=== PATIENT | female | born 1955 | race Caucasian/White ===

== ENCOUNTER 2019-10-18 10:55 | Emergency (ER) | payer MEDICARE, OTHER, SELFPAY ==
[2019-10-18 10:58] VITALS: BP 129/81; PULSE 71; RESP 17; O2SAT 98; BMI 32.1
--- NOTE | 2019-10-18 11:05 | ECG_ITS ---
Measurements Intervals [place] Rate: 73 P: 56 WA: 150 QRS: -14 QRSD: 125 T: 42 QT: 432 QTc: 479 SINUS RHYTHM LEFT BUNDLE BRANCH BLOCK [120+ ms QRS DURATION, 80+ ms Q/S IN V1/V2, 85+ ms R IN I/aVL/V5/V6] No previous ECG available for comparison Electronically Signed On 10-19-2019 11:15:19 ARTILLERY SPECIALIST by Sagar Daugherty M.D. [id number]
--- NOTE | 2019-10-18 11:05 | XR_ITS ---
WS: [id number] XR chest 1V portable [id number] REASON FOR EXAM: cp FINDINGS: The cardiac silhouette was not enlarged. The lung pendleton are well aerated there was no pneumonia, pleural effusion, pulmonary edema, or pneumo thorax. The thoracic spine was normal. No osseous abnormalities The hilum and apices are normal. XR/XR chest 1V portable [id number] IMPRESSION: No acute cardiopulmonary changes.
--- NOTE | 2019-10-18 11:10 | ED_ITS ---
Entered by Leana Edwards, acting as scribe for HPI - Chest Pain General: Chief Complaint: Chest Pain Stated Complaint: Chest pains Time Seen by Provider: 10/18/19 10:59 Source: patient and family Mode of arrival: ambulatory Limitations: no limitations History of Present Illness: HPI narrative: 64 yo female presents with neck and L arm pain. pt states this started today. pt states the pain is a pressure type pain is been going on for roughly 3 to 4 hours. She denies any worsening improving factors. She denies any sweating spells or nausea. She has no history of coronary artery disease that she knows of. She does have hypertension and hyperlipidemia. She is non-smoker. She she states she still has a pressure type pain in her chest but is very mild in nature. MD complaint: other (neck and left arm pain) Onset (ago): day(s) Timing of current episode: still present Associated symptoms: Reports no associated symptoms; Deny abdominal pain, dyspnea, fever(s), nausea or vomiting Treatment prior to arrival: none Review of Systems Const: Denies: fever, chills, body aches or change in appetite Eyes: Denies: photophobia ENMT: Denies: throat pain or dental pain Card: Reports: chest pain Resp: Denies: shortness of breath GI: Denies: abdominal pain, nausea, vomiting or diarrhea : Denies: painful urination Musc: Denies: back pain Skin/Breast: Denies: rash Neuro: Denies: headache Psych: Denies: depression Charles/Lymph: Denies: easy bruising All/Imm: Denies: acute wheezing PFS ED PFSH: Social History Smoking and tobacco status: never smoked Alcohol intake: never Marital status: Physical Exam Const: COMMON NORMALS: no apparent distress, oriented x3 and healthy appearing HENMT: COMMON NORMALS: normocephalic and head/scalp atraumatic HEAD & S CALP: normocephalic and atraumatic Eye: COMMON NORMALS: PERRL and EOMs intact bilaterally PUPIL: Yes PERRL Chest: COMMONS NORMALS: inspection of chest normal and palpation of chest normal Resp: COMMON NORMALS: normal respiratory effort, no retractions, no use of accessory muscles and clear to auscultation bilaterally AUSCULTATION: clear to auscultation bilaterally Cardio: COMMON NORMALS: regular rate, regular rhythm and no murmurs RATE: regular rate RHYTHM: regular rhythm GI: COMMON NORMALS: normal to inspection, nondistended, normoactive bowel sounds, soft to palpation, non-tender and no masses PALPATION: Yes soft Neuro: COMMON NORMALS: oriented x3, moves all extremities and no focal motor deficits Psych: COMMON NORMALS: mental status grossly normal, thought process normal and cooperative THOUGHT PROCESS: normal thought process Skin: COMMON NORMALS: no rashes or lesions noted and no wounds GENERAL SKIN EXAM: no rashes or lesions noted Course Vital Signs: Vital signs: Vital Signs Pulse Rate 87 10/18/19 14:50 Respiratory Rate 22 H 10/18/19 14:50 Blood Pressure 101/62 10/18/19 14:50 Pulse Oximetry 94 10/18/19 14:50 MDM - Chest Pain MDM Narrative: Medical decision making narrative: Patient presents with atypical chest pain with no signs of coronary artery disease or pulmonary bruising. Patient is stable for discharge and is to follow-up primary care doctor in 3 to 5 days return if worsening. Lab Data: Labs: Lab Results 10/18/19 10/18/19 10/18/19 Range/Units 11:10 11:10 11:10 WBC 6.6 (4.0-10.0) 10^3/ uL RBC 4.24 (4.1-5.3) 10^6/u L Hgb 12.9 (11.5-15.3) g/dL Hct 39.1 (37.0-47.0) % MCV 92.2 (81-99) fL MCH 30.4 (28.0-34.0) pg MCHC 33.0 (30.0-36.0) g/dL RDW 12.9 (12.1-15.1) % Plt Count 247 (130-400) 10^3/c mm MPV 10.3 (7.4-10.4) fL Neut % (Auto) 57.0 % Lymph % (Auto) 33.4 % Butts % (Auto) 7.3 % Eos % (Auto) 1.5 % Baso % (Auto) 0.5 % Neut # (Auto) 3.7 (1.8-7.7) 10^3/u L Lymph # (Auto) 2.2 (0.8-4.8) 10^3/u L Butts # (Auto) 0.5 (0.2-0.9) 10^3/u L Eos # (Auto) 0.1 (0.0-0.8) 10^3/u L Baso # (Auto) 0.0 (0.0-0.1) 10^3/u L Nucleated RBC % (a uto) 0 % Nucleated RBCs # 0.0 /100WBC Sodium 140 (136-145) mmol/L Potassium 3.7 (3.5-5.1) mmol/L Chloride 102 (98-107) mmol/L Carbon Dioxide 25 (22-29) mmol/L Anion Gap 16.7 (5-19) BUN 12 (8-23) mg/dL Creatinine 0.8 (0.5-0.9) mg/dL GFR Calculation 71.8 L (90-130) mL/min Glucose 108 (65-115) mg/dL Calcium 9.9 (8.5-10.5) mg/dL Total Bilirubin 0.4 (0.15-1.2) mg/dL AST 21 (0-32) U/L ALT 17 (0-33) U/L Alkaline Phosphata se 81 (35-105) IU/L Troponin T Baselin e 7 (0-10) ng/mL Troponin T 120 Min tommy (0-10) ng/mL Delta Troponin T (0-10) ABS# Total Protein 7.7 (6.6-8.7) g/dL Albumin 4.4 (3.5-5.2) g/dL Globulin 3.3 (1.3-4.6) g/dL Lipase 26 (13-60) U/L 02/16/20 Range/Units 13:02 WBC (4.0-10.0) 10^3/ uL RBC (4.1-5.3) 10^6/u L Hgb (11.5-15.3) g/dL Hct (37.0-47.0) % MCV (81-99) fL MCH (28.0-34.0) pg MCHC (30.0-36.0) g/dL RDW (12.1-15.1) % Plt Count (130-400) 10^3/c mm MPV (7.4-10.4) fL Neut % (Auto) % Lymph % (Auto) % Butts % (Auto) % Eos % (Auto) % Baso % (Auto) % Neut # (Auto) (1.8-7.7) 10^3/u L Lymph # (Auto) (0.8-4.8) 10^3/u L Butts # (Auto) (0.2-0.9) 10^3/u L Eos # (Auto) (0.0-0.8) 10^3/u L Baso # (Auto) (0.0-0.1) 10^3/u L Nucleated RBC % (a uto) % Nucleated RBCs # /100WBC Sodium (136-145) mmol/L Potassium (3.5-5.1) mmol/L Chloride (98-107) mmol/L Carbon Dioxide (22-29) mmol/L Anion Gap (5-19) BUN (8-23) mg/dL Creatinine (0.5-0.9) mg/dL GFR Calculation (90-130) mL/min Glucose (65-115) mg/dL Calcium (8.5-10.5) mg/dL Total Bilirubin (0.15-1.2) mg/dL AST (0-32) U/L ALT (0-33) U/L Alkaline Phosphata se (35-105) IU/L Troponin T Baselin e (0-10) ng/mL Troponin T 120 Min tommy 6.00 (0-10) ng/mL Delta Troponin T -1.00 L (0-10) ABS# Total Protein (6.6-8.7) g/dL Albumin (3.5-5.2) g/dL Globulin (1.3-4.6) g/dL Lipase (13-60) U/L Imaging Data^: CXR: My impression: no acute abnormality EKG Data^: EKG 1: Attestation: I personally reviewed and interpreted this EKG as follows: EKG interpretation date: 10/18/19 EKG interpretation time: 11:45 Interpretation: nsr hr [address] or t wave abnormalties qrs 125 qtc 459 Discharge Plan Discharge Patient Disposition: Home, Self-Care Clinical Impression: Atypical chest pain Condition: Stable Prescriptions: New Adult Low Dose Aspirin 81 mg tablet,delayed release (DR/EC) 81 mg PO DAILY Qty: 30 RF: 0 omeprazole 20 mg capsule,delayed release(DR/EC) 20 mg PO DAILY 90 Days Qty: 90 RF: 0 No Action metoprolol tartrate 25 mg tablet 25 mg PO BID RF: 0 levothyroxine 50 mcg capsule 50 mcg PO DAILY RF: 0 omega-3 fatty acids Capsule 1,250 mg PO BID RF: 0 [id number] Tablet 2 tab PO DAILY RF: 0 cholecalciferol (vitamin D3) 5,000 unit capsule 5,000 unit PO DAILY RF: 0 Probiotic Acidophilus 1.5 mg (250 million cell) capsule 100 mmu cells PO DAILY RF: 0 spironolactone 25 mg tablet 25 mg PO DAILY RF: 0 vitamin B complex Tablet 1 tab PO DAILY RF: 0 Discharge Orders: Discharge Order (Routine); Ordered 10/18/19 Ordered By: Joseluis Quintana Referrals: Dayne Ham DO [Primary Care Provider] - Discharge Diet: Usual diet Discharge Activity: Limit activity as instructed Patient Instructions: Aspirin (By mouth), Omeprazole (By mouth), Chest Pain (ED) Activity Restrictions/Additional Instructions: Follow-up with your beater machine operator within the week. Discharge Date/Time: 10/18/19 14:52 Coding Level of Care Code ED [place] for Chg Fwd Exam Detailed The documentation recorded by the Jerry de luna Bridget Annette, accurately reflects the service I personally performed and the decisions made by Charlene cruz Korby, MD Oct 18, 2019 10:55
[2019-10-18 11:16] LABS: Basophils % 0.5 %; Eosinophils # 0.1 10^3/uL (0.0-0.8); Eosinophils % 1.5 %; Hematocrit 39.1 % (37.0-47.0); Hemoglobin 12.9 g/dL (11.5-15.3); Lymphocytes # 2.2 10^3/uL (0.8-4.8); Lymphocytes % 33.4 %; Mean Corpuscular Hemoglobin 30.4 pg (28.0-34.0); Mean Corpuscular Volume 92.2 fL (81-99); Mean Platelet Volume 10.3 fL (7.4-10.4); Monocytes # 0.5 10^3/uL (0.2-0.9); Monocytes % 7.3 %; Neutrophils # 3.7 10^3/uL (1.8-7.7); Nucleated Red Blood Cells % 0 %; Platelet Count 247 10^3/cmm (130-400); Red Blood Count 4.24 10^6/uL (4.1-5.3); Red Cell Distribution Width 12.9 % (12.1-15.1); White Blood Count 6.6 10^3/uL (4.0-10.0)
[2019-10-18] MEDS: aspirin 81 mg Chew Tablet 324 MG PO (11:50)
[2019-10-18] MEDS: nitroglycerin 0.4 mg sublingual Tablet SUBLINGUAL ×2 (11:52→12:12)
[2019-10-18 11:58] LABS: Alanine Aminotransferase 17 U/L (0-33); Albumin Level 4.4 g/dL (3.5-5.2); Alkaline Phosphatase 81 IU/L (35-105); Anion Gap 16.7 (5-19); Aspartate Amino Transferase 21 U/L (0-32); Blood Urea Nitrogen 12 mg/dL (8-23); Calcium 9.9 mg/dL (8.5-10.5); Carbon Dioxide 25 mmol/L (22-29); Chloride 102 mmol/L (98-107); Creatinine Clr Calc Pharmacy 65.0015; Globulin 3.3 g/dL (1.3-4.6); Glomerular Filtration Rate 71.8 mL/min (90-130); Glucose 108 mg/dL (65-115); Lipase 26 U/L (13-60); Potassium 3.7 mmol/L (3.5-5.1); Sodium 140 mmol/L (136-145); Total Bilirubin 0.4 mg/dL (0.15-1.2); Total Protein 7.7 g/dL (6.6-8.7)
[2019-10-18 11:59] LABS: Troponin(5th) Baseline 7 ng/mL (0-10)
--- NOTE | 2019-10-18 13:05 | ECG_ITS ---
Measurements Intervals [place] Rate: 54 P: 39 WI: 149 QRS: -11 QRSD: 128 T: 29 QT: 466 QTc: 445 SINUS BRADYCARDIA LEFT BUNDLE BRANCH BLOCK [120+ ms QRS DURATION, 80+ ms Q/S IN V1/V2, 85+ ms R IN I/aVL/V5/V6] No previous ECG available for comparison Electronically Signed On 10-19-2019 11:21:56 PATHOLOGY LABORATORY AIDES TEACHER by Sagar Daugherty M.D. [id number] f
[2019-10-18 13:12] VITALS: BP 93/74; PULSE 60; RESP 17; O2SAT 98
[2019-10-18 14:50] VITALS: BP 101/62; PULSE 87; RESP 22; O2SAT 94
== END 2019-10-18 14:52 | disposition home or self-care (01) ==
PROVIDERS: Emergency Provider Emergency Medicine; Family Provider Electrodiagnostic Medicine; PCP Electrodiagnostic Medicine
DX: R07.89 Other chest pain (principal); I10 Essential (primary) hypertension; E78.5 Hyperlipidemia, unspecified
CPT/HCPCS: 36415; 71045; 80053; 83690; 84484; 85025; 93005; 99282; 99284

== ENCOUNTER → 2020-05-24 10:29 | Outpatient (BNVA) | payer MEDICARE, OTHER, SELFPAY | PROVIDERS: Family Provider Electrodiagnostic Medicine; PCP Electrodiagnostic Medicine; Visit Provider Internal Medicine Cardiovascular Disease | DX: R06.02 Shortness of breath (principal) | CPT/HCPCS: 80048 ==

== ENCOUNTER 2021-01-05 11:19 | Outpatient (CLI) | payer MEDICARE, OTHER, SELFPAY ==
--- NOTE | 2021-01-05 11:27 | MM_ITS ---
WS: [id number] BILATERAL SCREENING DIGITAL MAMMOGRAM WITH CAD HISTORY: SCREENING COMPARISON: 06/13/2017 and 10/06/2015 Bilateral CC and MLO views submitted. Computer aided detection analyzed. Breast composition: The breasts are heterogeneously dense, which may obscure small masses. No suspici ous masses, microcalcifications or architectural distortion. Benign calcification LEFT breast. MM/[place] [id number] IMPRESSION: BI-RADS: 2-Benign FOLLOW UP: 1 Year Follow-up
== END 2021-01-05 11:20 | disposition home or self-care (01) ==
LOC: RADSHAW 11:24
PROVIDERS: Family Provider Electrodiagnostic Medicine; PCP Electrodiagnostic Medicine; Visit Provider Electrodiagnostic Medicine
DX: Z12.31 Encounter for screening mammogram for malignant neoplasm of breast (principal)
CPT/HCPCS: 77067

== ENCOUNTER 2021-02-21 14:34 | Outpatient (CLI) | payer MEDICARE, OTHER, SELFPAY ==
--- NOTE | 2021-02-21 14:46 | US_ITS ---
WS: [id number] THYROID ULTRASOUND HISTORY: GOITER COMPARISON: 10/10/2018 Right lobe: 1.4 cm x 1.6 cm x 4.7 cm (w x ap x l). Volume: 5.7 cm3. Normal size thyroid. Mild heterogeneity. No suspicious nodules are identified. Small stable hypoechoi c nodule in the RIGHT isthmus measuring 1.8 cm. Left lobe: 1.9 cm x 1.9 cm x 4.7 cm (w x ap x l). Volume: 9.2 cm3. Mildly enlarged thyroid. Heterogeneous gland with a dominant solid nodule in the lower pole measuring 1.4 x 1.0 x 1.9 cm. Not significantly changed since the prior study. No increased vascularity. There are additional nodules which are also stable. Isthmus: 0.6 cm. US/US thyroid [id number] IMPRESSION: Stable bilateral thyroid nodules. No change since 10/10/2018. Consider yearly ult rasound evaluation to document continued stability.
--- NOTE | 2021-02-21 15:34 | XR_ITS ---
WS: [id number] SCREENING DEXA SCAN [employer] CLINICAL INFORMATION: VITAMIN D DEFICIENCY, OSTEOPOROSIS COMPARISON: 015 FINDINGS: The L1-L4 bone mineral density measures 1.134 g/cm2. This corresponds to a T score score of -0.4 and Z score of 0.9. Left femoral neck bone mineral density measures 0.780 g/cm2. This corresponds to a T score of -1.8 an d Z score of -0.7. Right femoral neck bone mineral density measures 0.806 g/cm2. This corresponds to a T score -1.6of an d Z score of -0.5. Mean femoral neck bone mineral density measures 0.793 g/cm2. This corresponds to a T score of -1.7 an d Z score of -0.6. XR/XR DEXA axial skeleton* [id number] IMPRESSION: Osteopenia in the femoral necks. Normal bone mineralization lumbar spine. Patient's FRAX calculated 10 year probability for major osteoporotic fracture i s 19.8 % and osteoporotic hip fracture is 3.9%.
== END 2021-02-21 14:35 | disposition home or self-care (01) ==
LOC: RAD 14:39
PROVIDERS: PCP Electrodiagnostic Medicine; Visit Provider Electrodiagnostic Medicine
DX: M81.0 Age-related osteoporosis without current pathological fracture (principal); E55.9 Vitamin D deficiency, unspecified; M85.88 Other specified disorders of bone density and structure, other site; E04.9 Nontoxic goiter, unspecified; E04.1 Nontoxic single thyroid nodule
CPT/HCPCS: 76536; 77080

== ENCOUNTER → 2021-09-27 10:45 | Outpatient (BNVA) | payer MEDICARE, OTHER, SELFPAY | PROVIDERS: PCP Electrodiagnostic Medicine; Visit Provider Internal Medicine Cardiovascular Disease | DX: R06.02 Shortness of breath (principal); I10 Essential (primary) hypertension | CPT/HCPCS: 80048 ==

== ENCOUNTER → 2022-03-23 07:11 | Outpatient (BNVA) | payer MEDICARE, OTHER, SELFPAY | PROVIDERS: Visit Provider Family Medicine | DX: E03.9 Hypothyroidism, unspecified (principal); E78.2 Mixed hyperlipidemia; I10 Essential (primary) hypertension; Z76.89 Persons encountering health services in other specified circumstances | CPT/HCPCS: 80053; 80061; 84439; 84443; 85025 ==

== ENCOUNTER → 2022-03-29 09:40 | Outpatient (BNVA) | payer MEDICARE, OTHER, SELFPAY | PROVIDERS: PCP Family Medicine; Visit Provider Internal Medicine Cardiovascular Disease | DX: R06.02 Shortness of breath (principal); I47.1 Supraventricular tachycardia; I25.10 Atherosclerotic heart disease of native coronary artery without angina pectoris; I10 Essential (primary) hypertension; E78.2 Mixed hyperlipidemia; R07.89 Other chest pain; E03.9 Hypothyroidism, unspecified; R00.1 Bradycardia, unspecified | CPT/HCPCS: 93005; 99214 ==

== ENCOUNTER 2022-06-15 12:01 | Outpatient (CLI) | payer MEDICARE, OTHER, SELFPAY ==
--- NOTE | 2022-06-15 13:30 | USCV_ITS ---
Alie Ledesma Age: 67 Gender: F : 1955 Exam Date: 06/15/2022 13:14 Ordering Phys: Mary Leon MD ([email or web address]) Technologist: Keith Bee [place] [facility] [place]: coranary heart disease BP: 120 / 70 HR: 57 Rhythm: Sinus Technical Quality: Adequate MEASUREMENTS (Male / Female) Normal Values 2D ECHO LV Diastolic Diameter PLAX 4.6 cm 4.2 - 5.9 / 3.9 - 5.3 cm LV Systolic Diameter PLAX 2.8 cm IVS Diastolic Thickness 1.0 cm 0.6 - 1.0 / 0.6 - 0.9 cm IVS Systolic Thickness 1.3 cm LVPW Diastolic Thickness 0.8 cm 0.6 - 1.0 / 0.6 - 0.9 cm LVPW Systolic Thickness 1.4 cm LVOT Diameter 1.9 cm LV Ejection Fraction 2D Teich 69.8 % LV Ejection Fraction MOD 2C 80.7 % LV Ejection Fraction 2C AL 80.9 % LA Diameter 3.6 cm Aorta at Sinotubular Diameter 2.5 cm IVC Diameter 1.2 cm M-MODE LV Diastolic Diameter MM 4.5 cm 4.2 - 5.9 / 3.9 - 5.3 cm LV Systolic Diameter MM 2.9 cm LV Ejection Fraction MM Teich 64.7 % IVS Diastolic Thickness MM 0.9 cm 0.6 - 1.0 / 0.6 - 0.9 cm IVS Systolic Thickness MM 1.9 cm LVPW Diastolic Thickness MM 1.1 cm 0.6 - 1.0 / 0.6 - 0.9 cm LVPW Systolic Thickness MM 1.6 cm RV Diastolic Diameter MM 1.3 cm Aortic Annulus Diameter 3.0 cm LA Ao Ratio MM 1.3 MV E Point Septal Separation 0.9 cm DOPPLER AV Peak Velocity 120.0 cm/s LVOT Peak Velocity 87.0 cm/s AV Area Cont Eq vti 2.0 cm squared AV Area Cont Eq pk 2.1 cm squared MV Area PHT 5.0 cm squared Mitral E to A Ratio 1.3 MV E' Velocity 44.5 cm/s Mitral E to MV E' Ratio 7.0 Mitral E to LV E' Lateral Ratio 9.0 Mitral E to LV E' Septal Ratio 5.7 TR Peak Velocity 112.0 cm/s TR Peak Gradient 5.0 mmHg TV Peak E Velocity 82.0 cm/s Right Atrial Pressure 3.0 mmHg Pulmonary Artery Systolic Pressu 8.0 mmHg RV Acceleration Time 0.2 s FINDINGS Left Ventricle Normal left ventricular size and systolic function, EF 72 %. No regional wall motion abnormalities. Right Ventricle The right ventricle is normal in size and function. Right Atrium The right atrium is normal in size. Left Atrium The left atrium is normal in size. Mitral Valve Mild mitral valve regurgitation. Aortic Valve No gross abnormalities noted Tricuspid Valve No gross abnormalities noted Pulmonic Valve Trace pulmonary valve regurgitation. Estimated pulmonary artery peak systolic pressure within normal limits Pericardium Normal pericardium without effusion. Aorta Normal ascending aorta dimension. IVC Normal inferior vena cava. CONCLUSIONS Normal left ventricular size and systolic function, EF 72 %. No regional wall motion abnormalities. Trace pulmonary valve regurgitation. Estimated pulmonary artery peak systolic pressure within normal limits. Normal cardiac chamber sizes. There is no pericardial effusion. There are no intracardiac masses. Compared to the study from 09/15/2018, the LV diastolic function appears to be in the normal range Dr Mary Leon MD FACC (Electronically Signed) Final Date: 15 June 2022 15:41 S
== END 2022-06-15 12:02 | disposition home or self-care (01) ==
LOC: RAD 12:05
PROVIDERS: PCP Family Medicine; Visit Provider Internal Medicine Cardiovascular Disease
DX: R06.02 Shortness of breath (principal); R06.00 Dyspnea, unspecified; I25.10 Atherosclerotic heart disease of native coronary artery without angina pectoris
CPT/HCPCS: 93306

== ENCOUNTER → 2022-09-04 08:39 | Outpatient (BNVA) | payer MEDICARE, OTHER, SELFPAY | PROVIDERS: PCP Family Medicine; Visit Provider Family Medicine | DX: E03.9 Hypothyroidism, unspecified (principal); I10 Essential (primary) hypertension; E78.2 Mixed hyperlipidemia; R30.0 Dysuria | CPT/HCPCS: 80053; 81000; 84443; 87086 ==

== ENCOUNTER → 2023-03-04 10:25 | Outpatient (BNVA) | payer MEDICARE, OTHER, SELFPAY | PROVIDERS: PCP Family Medicine; Visit Provider Internal Medicine Cardiovascular Disease | DX: I25.10 Atherosclerotic heart disease of native coronary artery without angina pectoris (principal); I47.1 Supraventricular tachycardia; R06.02 Shortness of breath; E78.2 Mixed hyperlipidemia; I11.9 Hypertensive heart disease without heart failure; Z79.82 Long term (current) use of aspirin | CPT/HCPCS: 99214 ==

== ENCOUNTER → 2023-03-13 08:13 | Outpatient (BNVA) | payer MEDICARE, OTHER, SELFPAY | PROVIDERS: PCP Family Medicine; Visit Provider Podiatrist Foot & Ankle Surgery | DX: L60.3 Nail dystrophy (principal) | CPT/HCPCS: 99203 ==

== ENCOUNTER → 2023-08-19 08:46 | Outpatient (BNVA) | payer MEDICARE, OTHER, SELFPAY | PROVIDERS: PCP Family Medicine; Visit Provider Nurse Practitioner Family | DX: R09.81 Nasal congestion (principal); U07.1 COVID-19 | CPT/HCPCS: 87400; 87426 ==

== ENCOUNTER → 2023-08-28 06:51 | Outpatient (BNVA) | payer MEDICARE, OTHER, SELFPAY | PROVIDERS: PCP Family Medicine; Visit Provider Podiatrist Foot & Ankle Surgery | DX: M72.2 Plantar fascial fibromatosis; L60.3 Nail dystrophy | CPT/HCPCS: 73630; 99213 ==

== ENCOUNTER → 2023-10-09 06:49 | Outpatient (BNVA) | payer MEDICARE, OTHER, SELFPAY | PROVIDERS: PCP Family Medicine; Visit Provider Podiatrist Foot & Ankle Surgery | DX: L60.3 Nail dystrophy; M72.2 Plantar fascial fibromatosis | CPT/HCPCS: 99213 ==

== ENCOUNTER → 2023-10-30 11:45 | Outpatient (BNVA) | payer MEDICARE, OTHER, SELFPAY | PROVIDERS: PCP Family Medicine; Visit Provider Family Medicine | DX: E78.2 Mixed hyperlipidemia (principal); E03.9 Hypothyroidism, unspecified; I25.10 Atherosclerotic heart disease of native coronary artery without angina pectoris; I10 Essential (primary) hypertension; R30.0 Dysuria | CPT/HCPCS: 80053; 80061; 81000; 84439; 84443; 85025 ==

== ENCOUNTER 2023-11-13 10:17 | Outpatient (CLI) | payer MEDICARE, OTHER, SELFPAY | END 2023-11-13 10:18 | disposition home or self-care (01) | LOC: SPT 11-14 10:18 | PROVIDERS: PCP Family Medicine; Visit Provider Podiatrist Foot & Ankle Surgery | DX: Z46.89 Encounter for fitting and adjustment of other specified devices (principal); M72.2 Plantar fascial fibromatosis | CPT/HCPCS: L3030 ==

== ENCOUNTER → 2023-11-27 11:42 | Outpatient (BNVA) | payer MEDICARE, OTHER, SELFPAY | PROVIDERS: PCP Family Medicine; Visit Provider Internal Medicine Cardiovascular Disease | DX: I25.10 Atherosclerotic heart disease of native coronary artery without angina pectoris (principal); E78.2 Mixed hyperlipidemia; I11.9 Hypertensive heart disease without heart failure | CPT/HCPCS: 99214 ==

== ENCOUNTER → 2024-01-22 06:53 | Outpatient (BNVA) | payer MEDICARE, OTHER, SELFPAY | PROVIDERS: PCP Family Medicine; Visit Provider Podiatrist Foot & Ankle Surgery | DX: M72.2 Plantar fascial fibromatosis (principal) | CPT/HCPCS: 99213 ==

== ENCOUNTER → 2024-05-27 10:32 | Outpatient (BNVA) | payer MEDICARE, OTHER, SELFPAY | PROVIDERS: PCP Family Medicine; Visit Provider Nurse Practitioner Family | DX: I25.10 Atherosclerotic heart disease of native coronary artery without angina pectoris (principal); I11.9 Hypertensive heart disease without heart failure | CPT/HCPCS: 99214 ==

== ENCOUNTER 2024-05-29 07:08 | Outpatient (CLI) | payer MEDICARE, OTHER, SELFPAY ==
[2024-05-29 07:55] LABS: Chol HDL Ratio 2.52 mg/dL (0.0-4.40); Cholesterol 146 mg/dL (0-200); HDL Cholesterol 58 mg/dL (60-100); LDL Cholesterol Calculated 80 mg/dL (50-129); LDL HDL Ratio 1.38 RATIO (0.00-3.22); Triglycerides 41 mg/dL (0-150)
== END 2024-05-29 07:09 | disposition home or self-care (01) ==
PROVIDERS: PCP Family Medicine; Visit Provider Nurse Practitioner Family
DX: I25.10 Atherosclerotic heart disease of native coronary artery without angina pectoris (principal)
CPT/HCPCS: 36415; 80061

== ENCOUNTER → 2025-01-04 14:42 | Outpatient (BNVA) | payer MEDICARE, OTHER, SELFPAY | PROVIDERS: PCP Family Medicine; Visit Provider Family Medicine | DX: I10 Essential (primary) hypertension (principal); I25.10 Atherosclerotic heart disease of native coronary artery without angina pectoris; E78.2 Mixed hyperlipidemia; E03.9 Hypothyroidism, unspecified; E04.9 Nontoxic goiter, unspecified | CPT/HCPCS: 80053; 84439; 84443; 85025 ==

== ENCOUNTER → 2025-01-05 12:20 | Outpatient (BNVA) | payer MEDICARE, OTHER, SELFPAY | PROVIDERS: PCP Family Medicine; Visit Provider Internal Medicine Cardiovascular Disease | DX: E78.5 Hyperlipidemia, unspecified (principal); E78.2 Mixed hyperlipidemia | CPT/HCPCS: 36415; 80061; 80076 ==